=== PATIENT | male | born 1980 | race Caucasian/White ===

== ENCOUNTER 2018-09-21 02:06 | Emergency (ER) | payer OTHER ==
[~2018-09-21] VITALS: Ht 175.3 cm; Wt 88.0 kg
[2018-09-21] MEDS ORDERED: TETRACAINE 0.5% OPHTH DROPS 4ML BOTHEYE ONE (02:30)
[2018-09-21] MEDS ORDERED: ACETAMINOPHEN 325MG TABLET PO ONE (02:30)
[2018-09-21] MEDS ORDERED: FLUORESCEIN SODIUM 1MG/STRIP BOTHEYE ONE (02:45)
[2018-09-21 04:09] VITALS: BP 133/78
== END 2018-09-21 04:10 | disposition home or self-care (01) ==
LOC: ER 02:06
DX: H57.89 Other specified disorders of eye and adnexa (principal)
CPT/HCPCS: 99284